=== PATIENT | female | born 2000 | race Caucasian/White ===

== ENCOUNTER 2024-06-12 18:57 | Emergency (ER) | payer BC ==
[2024-06-12 19:35] LABS: #Basophils 0.03 10x3/uL (0.0-0.2); %Basophils 0.5 % (0.0-1.0); %Eosinophils 0.5 % (0.0-10.0); %Lymphocytes 37.4 % (21.0-51.0); %Neutrophils 55.4 % (42.0-75.0); Hematocrit 42.1 % (36.0-47.0); Mean Corpuscular HGB CONC 33.3 g/dL (32.0-36.0); Mean Corpuscular Hemoglobin 31.5 pg (27.0-31.0); Mean Corpuscular Volume 94.8 fL (78.0-98.0); Mean Platelet Volume 10.2 fL (7.4-10.4); Platelet Count 188 10x3/uL (130-400); RBC Distribution Width 11.8 % (11.5-14.5); Red Blood Cell (RBC) Count 4.44 mill/uL (4.20-5.40)
[2024-06-12 19:51] LABS: ALT (SGPT) 13 U/L (Less than 34); AST (SGOT) 25 U/L (11-34); Albumin 4.3 g/dL (3.1-4.5); Alkaline Phosphatase 50 U/L (40-110); Anion Gap 14 mmol/L (10-20); BUN (Urea Nitrogen) 17 mg/dL (7.0-18.7); Bilirubin, Total 0.2 mg/dL (0.3-1.2); Calc. Creatinine Clearance 0 mL/min (70-130); Calcium 9.1 mg/dL (7.8-10.44); Carbon Dioxide 24 mmol/L (22-29); Chloride 106 mmol/L (98-107); Estimated GFR 86; Globulin 3.3 g/dL (2.4-3.5); Glucose 96 mg/dL (70-105); Potassium 4.3 mmol/L (3.5-5.1); Protein, Total 7.6 g/dL (6.0-8.3); Sodium 140 mmol/L (136-145)
[2024-06-12 19:54] LABS: Troponin I 0.012 ng/mL (< 0.028)
[2024-06-12] MEDS ORDERED: Ketorolac Tromethamine 30 MG (1 mL) VIAL ONE (22:12)
[2024-06-12] MEDS ORDERED: Acetaminophen 500 MG TAB ONE (22:12)
[2024-06-12] MEDS ORDERED: methylPREDNISolone Sod Succ/PF 125 MG/2 ML VIAL ONE (22:12)
[2024-06-12 22:31] LABS: Magnesium 1.9 mg/dL (1.6-2.6)
[2024-06-12 23:37] LABS: Bacteria/HPF 1+ HPF (None Seen); Bilirubin Negative (Negative); Blood, Urine Negative (Negative); CAUTI Indications for Culture Pelvic or flank pain; Clarity Clear (Clear); Glucose, Urine (Dipstick) Normal (Negative); Ketone, Urine Negative (Negative); Leukocyte 75 Leu/uL (Negative); Nitrite Negative (Negative); Protein, Urine (Dipstick) Negative (Neg-Trace); RBC/HPF 0-3 HPF (0-3); Specific Gravity, Urine 1.011 (1.002-1.036); Squamous Epithelial 0-3 HPF (0-3); Urine Culture Reflex No No; Urobilinogen Normal mg/dL (Less than 2)
[2024-06-12] MEDS ORDERED: Prochlorperazine 10 MG/2 ML VIAL ONE (23:57)
[2024-06-12] MEDS ORDERED: diphenhydrAMINE 50 MG/ML VIAL ONE (23:57)
[2024-06-12] MEDS ORDERED: Magnesium 2 GM/50 ML BAG (IN WATER) ONE (23:58)
[2024-06-13 00:16] LABS: Pregnancy Test - Urine (BHCG) Negative (Negative); Pregu Control Background? CLEAR/WHITE (CLR/WHITE); Pregu Control Bar Appear? YES (CONTROL BAR); Specific Gravity 1.011 (1.002-1.036)
[2024-06-13 00:50] LABS: Troponin I 0.011 ng/mL (< 0.028)
== END 2024-06-13 01:22 | disposition home or self-care (01) ==
LOC: ERS 18:57
DX: R51.9 Headache, unspecified (principal); R07.2 Precordial pain; R29.700 NIHSS score 0
CPT/HCPCS: 36415; 70450; 71045; 80053; 81001; 81025; 83735; 83880; 84443; 84484; 85025; 93005; 96361; 96365; 96368; 96375; J0780; J1200; J1885; J2919; J3475